=== PATIENT | female | born 2000 | race Caucasian/White ===

== ENCOUNTER 2024-09-02 11:46 | Outpatient (CLI) | payer BC, SELFPAY | END 2024-09-02 11:47 | disposition home or self-care (01) | LOC: NFLDREF 11:49 | PROVIDERS: PCP Nurse Practitioner Family; Visit Provider Obstetrics & Gynecology | DX: Z12.4 Encounter for screening for malignant neoplasm of cervix (principal) | CPT/HCPCS: 87624; 87625; 88141; 88142 ==